=== PATIENT | male | born 1995 | race Hispanic/Latino ===

== ENCOUNTER 2023-11-24 14:11 | Emergency (ER) | payer SELFPAY ==
[2023-11-24] MEDS ORDERED: Boostrix 0.5 ML (Tdap) VIAL (>/=7 yrs of age) ONE (14:52)
[2023-11-24] MEDS ORDERED: Morphine 2 MG/ML VIAL ONE (14:52)
[2023-11-24] MEDS ORDERED: CEFAZOLIN 1 GM VIAL ONE (14:52)
[2023-11-24] MEDS ORDERED: Ondansetron PF 4 MG/2 ML Vial ONE (14:52)
[2023-11-24] MEDS ORDERED: Sodium Chloride 0.9% 100 ML ONE (14:53)
== END 2023-11-24 16:20 | disposition short-term general hospital (02) ==
LOC: NAV ERS 14:11
DX: S68.123A Partial traumatic metacarpophalangeal amputation of left middle finger, initial encounter (principal); S61.305A Unspecified open wound of left ring finger with damage to nail, initial encounter; R03.0 Elevated blood-pressure reading, without diagnosis of hypertension; Z23 Encounter for immunization; W31.2XXA Contact with powered woodworking and forming machines, initial encounter
CPT/HCPCS: 64450; 90471; 90715; 96365; 96375; J0690; J2272; J2405